=== PATIENT | female | born 1940 | race Caucasian/White ===

== ENCOUNTER → 2018-09-02 14:32 | Outpatient (REF) | payer MEDICARE, SELFPAY ==
[2018-09-02 14:41] LABS: INR 3.3 (0.9-1.3); Prothrombin Time 39.7 SECONDS (10.1-12.7)
== END ==
LOC: LAB 14:32
PROVIDERS: Family Provider Family Medicine; PCP Family Medicine; Visit Provider Family Medicine
DX: Z79.01 Long term (current) use of anticoagulants (principal)
CPT/HCPCS: 85610

== ENCOUNTER → 2019-01-16 12:36 | Outpatient (ROUT) | payer MEDICARE, SELFPAY ==
[2019-01-16 12:53] LABS: INR 2.3 (0.9-1.3); Prothrombin Time 27.4 SECONDS (10.1-12.7)
== END ==
PROVIDERS: Family Provider Family Medicine; PCP Family Medicine; Visit Provider Family Medicine
DX: Z79.01 Long term (current) use of anticoagulants (principal); I26.99 Other pulmonary embolism without acute cor pulmonale; I80.209 Phlebitis and thrombophlebitis of unspecified deep vessels of unspecified lower extremity
CPT/HCPCS: 85610

== ENCOUNTER → 2019-04-03 12:57 | Outpatient (CLI) | payer MEDICARE, SELFPAY | PROVIDERS: Family Provider Family Medicine; PCP Family Medicine; Visit Provider Family Medicine | DX: Z13.820 Encounter for screening for osteoporosis (principal); M85.852 Other specified disorders of bone density and structure, left thigh; Z78.0 Asymptomatic menopausal state; Z78.9 Other specified health status | CPT/HCPCS: 77080 ==

== ENCOUNTER → 2019-07-28 15:58 | Outpatient (ROUT) | payer MEDICARE, OTHER, SELFPAY ==
[2019-07-28 16:10] LABS: INR 3.5 (0.9-1.3); Prothrombin Time 39.6 SECONDS (10.1-12.7)
== END ==
PROVIDERS: Family Provider Family Medicine; PCP Family Medicine; Visit Provider Family Medicine
DX: Z79.01 Long term (current) use of anticoagulants (principal)
CPT/HCPCS: 85610

== ENCOUNTER → 2020-03-04 11:38 | Outpatient (ROUT) | payer MEDICARE, OTHER, SELFPAY ==
[2020-03-04 12:06] LABS: INR 4.4 (0.9-1.3); Prothrombin Time 49.4 SECONDS (10.1-12.7)
[2020-03-04 12:09] LABS: D Dimer < 200 ng/mL (<230)
== END ==
PROVIDERS: Family Provider Family Medicine; PCP Family Medicine; Visit Provider Family Medicine
DX: Z79.01 Long term (current) use of anticoagulants (principal); I26.99 Other pulmonary embolism without acute cor pulmonale; R00.0 Tachycardia, unspecified; I10 Essential (primary) hypertension; Z79.899 Other long term (current) drug therapy
CPT/HCPCS: 85379; 85610

== ENCOUNTER → 2020-03-23 10:18 | Outpatient (ROUT) | payer MEDICARE, OTHER, SELFPAY ==
[2020-03-23 10:38] LABS: INR 4.4 (0.9-1.3); Prothrombin Time 49.8 SECONDS (10.1-12.7)
== END ==
PROVIDERS: Family Provider Family Medicine; PCP Family Medicine; Visit Provider Family Medicine
DX: Z79.01 Long term (current) use of anticoagulants (principal)
CPT/HCPCS: 85610

== ENCOUNTER → 2020-03-31 16:36 | Outpatient (ROUT) | payer MEDICARE, OTHER, SELFPAY ==
[2020-03-31 17:32] LABS: INR 2.6 (0.9-1.3); Prothrombin Time 29.4 SECONDS (10.1-12.7)
== END ==
PROVIDERS: Visit Provider Family Medicine
DX: Z79.01 Long term (current) use of anticoagulants (principal)
CPT/HCPCS: 85610

== ENCOUNTER → 2020-04-13 11:49 | Outpatient (ROUT) | payer MEDICARE, OTHER, SELFPAY ==
[2020-04-13 11:54] LABS: INR 3.1 (0.9-1.3); Prothrombin Time 35.7 SECONDS (10.1-12.7)
== END ==
PROVIDERS: Family Provider Family Medicine; PCP Family Medicine; Visit Provider Family Medicine
DX: Z79.01 Long term (current) use of anticoagulants (principal)
CPT/HCPCS: 85610

== ENCOUNTER → 2020-04-29 14:29 | Outpatient (ROUT) | payer MEDICARE, OTHER, SELFPAY ==
[2020-04-29 14:36] LABS: INR 2.5 (0.9-1.3); Prothrombin Time 28.9 SECONDS (10.1-12.7)
== END ==
PROVIDERS: Family Provider Family Medicine; PCP Family Medicine; Visit Provider Family Medicine
DX: Z79.01 Long term (current) use of anticoagulants (principal)
CPT/HCPCS: 85610

== ENCOUNTER → 2020-07-22 10:46 | Outpatient (ROUT) | payer MEDICARE, OTHER, SELFPAY ==
[2020-07-22 10:53] LABS: INR 3.5 (0.9-1.3); Prothrombin Time 40.2 SECONDS (10.1-12.7)
== END ==
PROVIDERS: Visit Provider Family Medicine
DX: Z79.01 Long term (current) use of anticoagulants (principal)
CPT/HCPCS: 85610

== ENCOUNTER → 2020-08-05 13:08 | Outpatient (ROUT) | payer MEDICARE, OTHER, SELFPAY ==
[2020-08-05 13:24] LABS: Prothrombin Time 34.8 SECONDS (10.1-12.7)
== END ==
DX: Z79.01 Long term (current) use of anticoagulants (principal)
CPT/HCPCS: 85610

== ENCOUNTER → 2020-08-11 15:18 | Outpatient (ROUT) | payer MEDICARE, OTHER, SELFPAY ==
[2020-08-11 15:35] LABS: Prothrombin Time 96.8 SECONDS (10.1-12.7)
[2020-08-11 15:51] LABS: INR 8.5 (0.9-1.3)
== END ==
DX: I80.209 Phlebitis and thrombophlebitis of unspecified deep vessels of unspecified lower extremity (principal); I26.99 Other pulmonary embolism without acute cor pulmonale; Z79.01 Long term (current) use of anticoagulants
CPT/HCPCS: 85610

== ENCOUNTER → 2020-08-15 15:49 | Outpatient (ROUT) | payer MEDICARE, OTHER, SELFPAY ==
[2020-08-15 15:57] LABS: INR 1.6 (0.9-1.3); Prothrombin Time 18.5 SECONDS (10.1-12.7)
== END ==
PROVIDERS: Visit Provider Family Medicine
DX: Z79.01 Long term (current) use of anticoagulants (principal); I26.99 Other pulmonary embolism without acute cor pulmonale; I80.209 Phlebitis and thrombophlebitis of unspecified deep vessels of unspecified lower extremity
CPT/HCPCS: 85610

== ENCOUNTER → 2020-08-29 15:33 | Outpatient (ROUT) | payer MEDICARE, OTHER, SELFPAY ==
[2020-08-29 15:44] LABS: INR 3.5 (0.9-1.3); Prothrombin Time 38.5 SECONDS (10.1-12.7)
== END ==
PROVIDERS: Visit Provider Family Medicine
DX: Z79.01 Long term (current) use of anticoagulants (principal); I26.99 Other pulmonary embolism without acute cor pulmonale; I80.209 Phlebitis and thrombophlebitis of unspecified deep vessels of unspecified lower extremity
CPT/HCPCS: 85610

== ENCOUNTER → 2020-10-10 16:48 | Outpatient (ROUT) | payer MEDICARE, OTHER, SELFPAY ==
[2020-10-10 17:15] LABS: INR 1.6 (0.9-1.3); Prothrombin Time 17.9 SECONDS (10.1-12.7)
== END ==
PROVIDERS: Visit Provider Family Medicine
DX: Z79.01 Long term (current) use of anticoagulants (principal); I26.99 Other pulmonary embolism without acute cor pulmonale; I80.209 Phlebitis and thrombophlebitis of unspecified deep vessels of unspecified lower extremity
CPT/HCPCS: 85610

== ENCOUNTER → 2020-12-01 15:30 | Outpatient (ROUT) | payer MEDICARE, OTHER, SELFPAY ==
[2020-12-01 15:39] LABS: INR 2.4 (0.9-1.3); Prothrombin Time 27.1 SECONDS (10.1-12.7)
== END ==
PROVIDERS: Visit Provider Family Medicine
DX: I26.99 Other pulmonary embolism without acute cor pulmonale (principal); I80.209 Phlebitis and thrombophlebitis of unspecified deep vessels of unspecified lower extremity; Z79.01 Long term (current) use of anticoagulants
CPT/HCPCS: 85610

== ENCOUNTER → 2021-01-27 15:01 | Outpatient (ROUT) | payer MEDICARE, OTHER, SELFPAY ==
[2021-01-27 15:16] LABS: INR 3.2 (0.9-1.3); Prothrombin Time 37.3 SECONDS (10.1-12.7)
== END ==
PROVIDERS: Visit Provider Family Medicine
DX: I80.209 Phlebitis and thrombophlebitis of unspecified deep vessels of unspecified lower extremity (principal); Z79.01 Long term (current) use of anticoagulants
CPT/HCPCS: 85610

== ENCOUNTER → 2021-03-07 15:50 | Outpatient (ROUT) | payer MEDICARE, OTHER, SELFPAY ==
[2021-03-07 16:05] LABS: INR 2.2 (0.9-1.3); Prothrombin Time 25.4 SECONDS (10.1-12.7)
== END ==
PROVIDERS: Visit Provider Family Medicine
DX: Z79.01 Long term (current) use of anticoagulants (principal)
CPT/HCPCS: 85610

== ENCOUNTER → 2021-04-03 14:24 | Outpatient (ROUT) | payer MEDICARE, OTHER, SELFPAY ==
[2021-04-03 14:33] LABS: INR 3.2 (0.9-1.3); Prothrombin Time 37.3 SECONDS (10.1-12.7)
== END ==
PROVIDERS: Visit Provider Family Medicine
DX: Z79.01 Long term (current) use of anticoagulants (principal)
CPT/HCPCS: 85610

== ENCOUNTER → 2021-07-03 15:49 | Outpatient (ROUT) | payer MEDICARE, OTHER, SELFPAY ==
[2021-07-03 16:29] LABS: INR 3.7 (0.9-1.3); Prothrombin Time 42.9 SECONDS (10.1-12.7)
[2021-12-15 14:19] LABS: INR 3.3 (0.9-1.3); Prothrombin Time 38.5 SECONDS (10.1-12.7)
== END ==
PROVIDERS: Visit Provider Family Medicine
DX: Z79.01 Long term (current) use of anticoagulants (principal)
CPT/HCPCS: 85610

== ENCOUNTER → 2021-11-28 14:31 | Outpatient (ROUT) | payer MEDICARE, OTHER, SELFPAY ==
[2021-11-28 14:43] LABS: Prothrombin Time 34.4 SECONDS (10.1-12.7)
== END ==
PROVIDERS: Visit Provider Family Medicine
DX: I26.99 Other pulmonary embolism without acute cor pulmonale (principal); I80.209 Phlebitis and thrombophlebitis of unspecified deep vessels of unspecified lower extremity; Z79.01 Long term (current) use of anticoagulants
CPT/HCPCS: 85610

== ENCOUNTER → 2021-12-15 14:02 | Outpatient (ROUT) | payer MEDICARE, OTHER, SELFPAY | PROVIDERS: Visit Provider Family Medicine | DX: I80.209 Phlebitis and thrombophlebitis of unspecified deep vessels of unspecified lower extremity (principal); Z79.01 Long term (current) use of anticoagulants | CPT/HCPCS: 85610 ==

== ENCOUNTER → 2022-03-16 11:47 | Outpatient (ROUT) | payer MEDICARE, OTHER, SELFPAY ==
[2022-03-16 12:09] LABS: INR 1.8 (0.9-1.3); Prothrombin Time 20.4 SECONDS (10.1-12.7)
== END ==
PROVIDERS: Visit Provider Family Medicine
DX: I26.99 Other pulmonary embolism without acute cor pulmonale (principal); Z79.01 Long term (current) use of anticoagulants; I80.209 Phlebitis and thrombophlebitis of unspecified deep vessels of unspecified lower extremity
CPT/HCPCS: 85610

== ENCOUNTER → 2022-07-05 14:04 | Outpatient (ROUT) | payer MEDICARE, OTHER, SELFPAY ==
[2022-07-05 14:21] LABS: INR 1.7 (0.9-1.3); Prothrombin Time 19.5 SECONDS (10.1-12.7)
== END ==
PROVIDERS: Visit Provider Family Medicine
DX: Z79.01 Long term (current) use of anticoagulants (principal); I80.209 Phlebitis and thrombophlebitis of unspecified deep vessels of unspecified lower extremity
CPT/HCPCS: 85610

== ENCOUNTER → 2022-08-16 10:18 | Outpatient (ROUT) | payer MEDICARE, OTHER, SELFPAY ==
[2022-08-16 10:26] LABS: INR 1.8 (0.9-1.3); Prothrombin Time 20.4 SECONDS (10.1-12.7)
== END ==
PROVIDERS: Visit Provider Family Medicine
DX: I80.209 Phlebitis and thrombophlebitis of unspecified deep vessels of unspecified lower extremity (principal)
CPT/HCPCS: 85610

== ENCOUNTER → 2022-08-24 12:17 | Outpatient (ROUT) | payer MEDICARE, OTHER, SELFPAY ==
[2022-08-24 12:36] LABS: INR 3.2 (0.9-1.3); Prothrombin Time 36.8 SECONDS (10.1-12.7)
== END ==
PROVIDERS: Visit Provider Family Medicine
DX: Z79.01 Long term (current) use of anticoagulants (principal)
CPT/HCPCS: 85610

== ENCOUNTER → 2022-10-03 13:31 | Outpatient (ROUT) | payer MEDICARE, OTHER, SELFPAY ==
[2022-10-03 14:16] LABS: INR 3.7 (0.9-1.3); Prothrombin Time 42.8 SECONDS (10.1-12.7)
== END ==
PROVIDERS: Visit Provider Family Medicine
DX: Z79.01 Long term (current) use of anticoagulants (principal)
CPT/HCPCS: 85610

== ENCOUNTER → 2022-11-16 13:54 | Outpatient (ROUT) | payer MEDICARE, OTHER, SELFPAY ==
[2022-11-16 14:13] LABS: INR 3.7 (0.9-1.3); Prothrombin Time 42.5 SECONDS (10.1-12.7)
== END ==
PROVIDERS: Visit Provider Family Medicine
DX: Z79.01 Long term (current) use of anticoagulants (principal)
CPT/HCPCS: 85610

== ENCOUNTER → 2022-11-23 18:53 | Outpatient (ROUT) | payer MEDICARE, OTHER, SELFPAY | PROVIDERS: Visit Provider Family Medicine | DX: N39.0 Urinary tract infection, site not specified (principal) | CPT/HCPCS: 87077; 87086; 87186 ==

== ENCOUNTER → 2022-11-29 11:20 | Outpatient (CLI) | payer MEDICARE, OTHER, SELFPAY ==
--- NOTE | 2022-11-29 | DI.RAD.S_ITS ---
PROCEDURE: FL BARIUM SWALLOW INDICATIONS: Dysphagia, unspecified COMPARISON: None. FINDINGS: Function: Tertiary non propulsive contractions are noted, which are relatively low amplitude without signs of spasm. Incomplete clearance of the esophagus with seen on prone and supine images, and gastroesophageal reflux was not assessed. There is normal transit of a calibrated barium tablet through the esophagus into the stomach. Morphology: Air-contrast images demonstrate normal mucosal morphology. Single contrast views show no esophageal strictures, extrinsic mass effects, or diverticula. Small reducible hiatal hernia. Limited images of the stomach demonstrate normal appearance. IMPRESSION: 1. Small reducible hiatal hernia. 2. Mild tertiary contractions. 3. Incomplete clearance of the esophagus on non-upright sequences. Approved by: Cas Luu M.D. on 11/29/2022 at 13:17
== END ==
PROVIDERS: PCP Family Medicine; Referring Provider Family Medicine; Visit Provider Family Medicine
DX: R13.10 Dysphagia, unspecified (principal)
CPT/HCPCS: 74220

== ENCOUNTER → 2022-12-20 14:45 | Outpatient (ROUT) | payer MEDICARE, OTHER, SELFPAY ==
[2022-12-20 15:07] LABS: INR 2.9 (0.9-1.3); Prothrombin Time 33.1 SECONDS (10.1-12.7)
== END ==
PROVIDERS: PCP Family Medicine
DX: R07.9 Chest pain, unspecified (principal); E78.5 Hyperlipidemia, unspecified; I25.118 Atherosclerotic heart disease of native coronary artery with other forms of angina pectoris
CPT/HCPCS: 85610

== ENCOUNTER → 2022-12-21 15:53 | Outpatient (ROUT) | payer MEDICARE, OTHER, SELFPAY ==
[2022-12-21 16:10] LABS: Prothrombin Time 23.5 SECONDS (10.1-12.7)
== END ==
PROVIDERS: PCP Family Medicine; Visit Provider Registered Nurse
DX: Z51.81 Encounter for therapeutic drug level monitoring (principal); Z79.01 Long term (current) use of anticoagulants
CPT/HCPCS: 85610

== ENCOUNTER → 2023-05-01 15:20 | Outpatient (ROUT) | payer MEDICARE, OTHER, SELFPAY ==
[2023-05-01 16:04] LABS: Prothrombin Time 58.7 SECONDS (10.1-12.7)
== END ==
PROVIDERS: PCP Family Medicine; Visit Provider Family Medicine
DX: I82.409 Acute embolism and thrombosis of unspecified deep veins of unspecified lower extremity (principal); I26.99 Other pulmonary embolism without acute cor pulmonale
CPT/HCPCS: 85610

== ENCOUNTER → 2023-07-26 15:51 | Outpatient (ROUT) | payer MEDICARE, OTHER, SELFPAY ==
[2023-07-26 16:00] LABS: Prothrombin Time 80.5 SECONDS (9.4-12.5)
[2023-07-26 16:11] LABS: INR 6.9 (0.9-1.3)
== END ==
PROVIDERS: PCP Family Medicine; Visit Provider Family Medicine
DX: I82.409 Acute embolism and thrombosis of unspecified deep veins of unspecified lower extremity (principal); I26.99 Other pulmonary embolism without acute cor pulmonale
CPT/HCPCS: 85610

== ENCOUNTER → 2023-07-29 15:52 | Outpatient (ROUT) | payer MEDICARE, OTHER, SELFPAY ==
[2023-07-29 16:26] LABS: Prothrombin Time 46.2 SECONDS (9.4-12.5)
== END ==
PROVIDERS: PCP Family Medicine; Visit Provider Family Medicine
DX: I82.409 Acute embolism and thrombosis of unspecified deep veins of unspecified lower extremity (principal); I26.99 Other pulmonary embolism without acute cor pulmonale
CPT/HCPCS: 85610

== ENCOUNTER → 2023-08-02 11:50 | Outpatient (ROUT) | payer MEDICARE, OTHER, SELFPAY ==
[2023-08-02 12:08] LABS: INR 1.4 (0.9-1.3); Prothrombin Time 15.7 SECONDS (9.4-12.5)
== END ==
PROVIDERS: PCP Family Medicine; Visit Provider Family Medicine
DX: I82.409 Acute embolism and thrombosis of unspecified deep veins of unspecified lower extremity (principal); I26.99 Other pulmonary embolism without acute cor pulmonale
CPT/HCPCS: 85610

== ENCOUNTER → 2023-08-19 15:37 | Outpatient (ROUT) | payer MEDICARE, OTHER, SELFPAY ==
[2023-08-19 16:24] LABS: Prothrombin Time 70.2 SECONDS (9.4-12.5)
== END ==
PROVIDERS: PCP Family Medicine; Visit Provider Family Medicine
DX: I82.409 Acute embolism and thrombosis of unspecified deep veins of unspecified lower extremity (principal); I26.99 Other pulmonary embolism without acute cor pulmonale
CPT/HCPCS: 85610

== ENCOUNTER → 2023-11-14 16:07 | Outpatient (ROUT) | payer MEDICARE, OTHER, SELFPAY ==
[2023-11-14 16:40] LABS: Prothrombin Time 66.3 SECONDS (9.4-12.5)
[2023-11-14 16:45] LABS: INR 5.7 (0.9-1.3)
== END ==
PROVIDERS: PCP Family Medicine; Visit Provider Family Medicine
DX: I26.99 Other pulmonary embolism without acute cor pulmonale (principal); I82.409 Acute embolism and thrombosis of unspecified deep veins of unspecified lower extremity
CPT/HCPCS: 85610

== ENCOUNTER → 2023-11-26 13:56 | Outpatient (ROUT) | payer MEDICARE, OTHER, SELFPAY ==
[2023-11-26 14:08] LABS: INR 1.9 (0.9-1.3); Prothrombin Time 21.7 SECONDS (9.4-12.5)
== END ==
PROVIDERS: PCP Family Medicine; Visit Provider Family Medicine
DX: I82.409 Acute embolism and thrombosis of unspecified deep veins of unspecified lower extremity (principal); I26.99 Other pulmonary embolism without acute cor pulmonale
CPT/HCPCS: 85610

== ENCOUNTER → 2023-12-11 16:16 | Outpatient (ROUT) | payer MEDICARE, OTHER, SELFPAY ==
[2023-12-11 16:45] LABS: INR 4.3 (0.9-1.3); Prothrombin Time 49.8 SECONDS (9.4-12.5)
== END ==
PROVIDERS: PCP Family Medicine; Visit Provider Family Medicine
DX: I26.99 Other pulmonary embolism without acute cor pulmonale (principal); I82.409 Acute embolism and thrombosis of unspecified deep veins of unspecified lower extremity
CPT/HCPCS: 85610

== ENCOUNTER → 2024-03-18 15:04 | Outpatient (ROUT) | payer MEDICARE, OTHER, SELFPAY ==
[2024-03-18 15:39] LABS: Prothrombin Time 87.4 SECONDS (9.4-12.5)
[2024-03-18 15:52] LABS: INR 7.5 (0.9-1.3)
== END ==
PROVIDERS: PCP Family Medicine; Visit Provider Family Medicine
DX: I82.409 Acute embolism and thrombosis of unspecified deep veins of unspecified lower extremity (principal); I26.99 Other pulmonary embolism without acute cor pulmonale
CPT/HCPCS: 85610

== ENCOUNTER → 2024-04-22 11:35 | Outpatient (CLI) | payer MEDICARE, OTHER, SELFPAY | PROVIDERS: PCP Family Medicine; Visit Provider Urology | DX: N32.81 Overactive bladder (principal); N39.0 Urinary tract infection, site not specified; N39.3 Stress incontinence (female) (male); R30.0 Dysuria; R39.12 Poor urinary stream; R39.14 Feeling of incomplete bladder emptying; R39.9 Unspecified symptoms and signs involving the genitourinary system | CPT/HCPCS: 51798; 81002; 87077; 87086; 87186; 99214 ==

== ENCOUNTER → 2024-05-07 13:10 | Outpatient (CLI) | payer MEDICARE, OTHER, SELFPAY | PROVIDERS: PCP Family Medicine; Visit Provider Urology | DX: N39.0 Urinary tract infection, site not specified (principal); N39.3 Stress incontinence (female) (male); N32.81 Overactive bladder | CPT/HCPCS: 51741; 51798; 52000; 81002; 87086; 99214 ==

== ENCOUNTER → 2024-05-26 11:52 | Outpatient (ROUT) | payer MEDICARE, OTHER, SELFPAY ==
[2024-05-26 12:02] LABS: INR 1.5 (0.9-1.3); Prothrombin Time 16.5 SECONDS (9.4-12.5)
== END ==
PROVIDERS: PCP Family Medicine; Visit Provider Family Medicine
DX: I82.409 Acute embolism and thrombosis of unspecified deep veins of unspecified lower extremity (principal); I26.99 Other pulmonary embolism without acute cor pulmonale
CPT/HCPCS: 85610

== ENCOUNTER 2024-08-01 17:45 | Emergency (ER) | payer MEDICARE, OTHER, SELFPAY ==
--- NOTE | 2024-08-01 17:52 | DI.RAD.S_ITS ---
PROCEDURE: XR CHEST 1V INDICATIONS: Shortness of breath TECHNIQUE: One view of the chest was acquired. COMPARISON: [facility], CR, XR CHEST 2 VIEWS, 08/25/2020, 12:02. FINDINGS: Surgical changes and devices: None. Lungs and pleura: Lungs are clear. No pleural effusions or pneumothorax. Mediastinum: Mediastinal contours appear normal. Heart size is normal. Bones and chest wall: No suspicious bony lesions. Age-appropriate bony degenerative changes are seen. Mild dextroconvex scoliotic curvature is seen. A stable bone island can be seen involving the right humeral head. Overlying soft tissues appear unremarkable. IMPRESSION: Portable chest within normal limits for age. Dictated by: John Benitez M.D. on 08/01/2024 at 17:24 Approved by: John Benitez M.D. on 08/01/2024 at 17:25
--- NOTE | 2024-08-01 17:52 | EKG_ITS ---
[facility] [address] [place] [address] Test Date: 2024-08-01 Pat Name: Fay Carbajal Department: [facility] Room: Gender: Female Manager Packaging: DARIO : 1940 Requested By: Order Number: [id number] Reading MD: Bhavik Jackman MD Measurements Intervals Arbon Rate: 112 P: 30 LA: 152 QRS: -89 QRSD: 118 T: 35 QT: 344 QTc: 469 Interpretive Statements Sinus tachycardia Right bundle branch block Left anterior fascicular block Bifascicular block NO SIGNIFICANT CHANGE FROM PRIOR TRACING Electronically Signed On 08-02-2024 8:48:35 PST by Bhavik Jackman MD
[2024-08-01 17:58] VITALS: BP 149/87; PULSE 112; RESP 18; TEMP 37.1; O2SAT 93; BMI 36.1
--- NOTE | 2024-08-01 18:08 | ED.SOB ---
HPI - SOB/Dyspnea General Chief Complaint: Shortness of Breath/Dyspnea Stated Complaint: SOB, fever Time Seen by Provider: 08/01/24 18:05 Source: patient, RN notes reviewed and old records reviewed Mode of arrival: Wheelchair Limitations: no limitations History of Present Illness HPI Narrative: 84-year-old female history of atrial fibrillation on Eliquis, hypertension, dyslipidemia, CKD stage 3 presents with complaint of nasal congestion and cough generally feeling unwell shortness of breath over the last several days some chest discomfort, some nausea but with no vomiting. Patient states she was told she had a fever at the walk-in clinic is afebrile here and has not appreciate any fevers at home. She was had has a mild nasal congestion and cough. Notes little bit of chest discomfort sort of comes and goes does not seem to be exacerbated by anything in particular she was also had some increased shortness of breath. States she was able to ambulate to the bathroom and around the house but notices a change. She does not noticed a little bit of increased swelling in her lower extremities. She has had nausea but no vomiting. She just describes little bit of diarrhea intermittent with constipation. No abdominal back or flank pain. Describes myalgias. Does note she was chronic swelling in her lower extremities but it is little bit worse lately. Reports she was on Eliquis for atrial fibrillation, metoprolol, atorvastatin and several other medications does not appear she takes Lasix. Has had a prior cholecystectomy but no other prior cardiac interventions or surgeries reported. No known drug allergies. No tobacco, occasional alcohol, no recreational drugs. Dr. Escobar is her primary care physician. She was she was Dr. Melendrez for cardiology. 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 She was accompanied by family. Related Data Home Medications Medication Instructions Recorded Confirmed albuterol sulfate 90 mcg/actuation 1 puff INH PRN ##0 11/08/12 05/07/24 aerosol inhaler (Ventolin HFA) CA PANTOTHENATE/FOLIC ACID/VIT 1 tab PO QDAY ##0 01/19/13 05/07/24 (MULTIVITAMIN) Diphenhydramine Hydrochloride 25 mg OR HS ##0 01/22/13 05/07/24 (BENADRYL) apixaban 5 mg tablet (Eliquis) 5 mg PO BID 04/22/24 05/07/24 metoprolol succinate 50 mg 50 mg PO DAILY 04/22/24 05/07/24 tablet,extended release 24 hr montelukast 10 mg tablet 10 mg PO DAILY 04/22/24 05/07/24 oxybutynin chloride 5 mg tablet 5 mg PO DAILY 04/22/24 05/07/24 phenazopyridine 95 mg tablet (Azo 95 mg PO TID PRN 04/22/24 05/07/24 Urinary Pain Relief) atorvastatin 20 mg tablet mg PO DAILY 08/01/24 08/01/24 bupropion HCl 200 mg tablet,12 hr mg PO 08/01/24 08/01/24 sustained-release estradiol 0.01% (0.1 mg/gram) 0.5 g vaginal 2XW 08/01/24 08/01/24 vaginal cream furosemide 20 mg tablet mg PO 08/01/24 08/01/24 isosorbide mononitrate 30 mg mg PO DAILY 08/01/24 08/01/24 tablet,extended release 24 hr Previous Rx's Medication Instructions Recorded mirabegron 50 mg tablet,extended 50 mg PO DAILY #30 tabs 05/07/24 release 24 hr Allergies Allergy/AdvReac Type Severity Reaction Status Date / Time SULFA TOPICAL CREAM Allergy Unknown Uncoded 05/07/24 13:12 Review of Systems Review of Systems ROS Unobtainable: All systems reviewed & are unremarkable except as noted in HPI and below Patient History Social History Smoking Status: Never smoker Smoking Status: Never smoker Exam Narrative Exam Narrative: GEN: well nourished, well appearing female, alert and oriented x 3, patient appears to be in mild distress. HEENT: Atraumatic, pupils are equal round reactive to light, extraocular movements are intact, nares are clear, there is no conjunctival pallor. Throat is clear without any exudates, erythema, tonsillar enlargement or uvular deviation HEART: Heart rate slightly tachycardic but Regular rate and rhythm without murmur, clicks, rubs. Edema bilateral lower extremities. LUNGS:Lungs clear to auscultation, no wheezes, rales, mild crackles bilaterally, chest moves symmetrically, no tachypnea or accessory muscle use. ABD:bowel sounds normal, soft, non-tender, no guarding, rebound, rigidity, no masses noted, no hepatosplenomegaly :No CVA tenderness MSCL: Non-tender, no muscle atrophy, muscles strength 5/5 upper and lower extremities, full range of motion. NEURO:CN 2-12 intact, sensation normal Initial Vital Signs Initial Vital Signs: Vital Signs Temperature 98.7 F 08/01/24 17:58 Pulse Rate 112 H 08/01/24 17:58 Respiratory Rate 18 08/01/24 17:58 Blood Pressure 149/87 H 08/01/24 17:58 Pulse Oximetry 93 08/01/24 17:58 Oxygen Delivery Method Room Air 08/01/24 17:58 Course Orders Ordered: Discontinued Medications Furosemide (Furosemide 40 Mg/4 Ml Vial) 40 mg IV NOW ONE Stop: 08/01/24 19:04 Last Admin: 08/01/24 19:17 Dose: 40 mg Documented By: MARY Vital Signs Vital signs: Vital Signs - 8 hr 08/01/24 17:58 Temperature 98.7 F Pulse Rate 112 H Respiratory Rate 18 Blood Pressure 149/87 H Pulse Oximetry 93 Oxygen Delivery Method Room Air MDM - SOB/Dyspnea Lab Data 08/01/24 18:25 08/01/24 18:25 Labs: Lab Results 08/01/24 08/01/24 Range/Units 18:00 18:25 WBC 14.3 H (4.5-11.0) X10^3/uL RBC 3.97 L (4.0-5.2) X10^6/uL Hgb 12.2 (12.0-16.0) g/dL Hct 37.3 (36-46) % MCV 94.0 (80-100) fL MCH 30.8 (26-34) PG MCHC 32.8 (30-36) % RDW 13.0 (11.6-14.8) % Plt Count 245 (150-400) X10^3/uL Neut % (Auto) 71.5 (50-75) % Lymph % (Auto) 16.1 L (25-40) % [place] % (Auto) 11.4 (3-14) % Eos % (Auto) 0.5 L (2-4) % Baso % (Auto) 0.5 (0-2) % Neut # (Auto) 71243 H (8579-2769) /uL Lymph # (Auto) 2300 (5510-0936) /uL [place] # (Auto) 1600 H (0-900) /uL Eos # (Auto) 100 (0-450) /uL Baso # (Auto) 100 (0-100) /uL PT 21.8 H (9.4-12.5) SECONDS INR 2.0 H (0.9-1.3) Sodium 134 L (137-145) mmol/L Potassium 4.3 (3.4-5.1) mmol/L Chloride 101 (98-107) mmol/L Carbon Dioxide 22 (22-32) mmol/L BUN 31 H (7-17) mg/dL Creatinine 1.43 H (0.52-1.04) mg/dL Estimated GFR 36 L (>60) mL/min BUN/Creatinine Ratio 21.7 (6-22) Glucose 125 H (80-110) mg/dL Lactate 1.0 (0.7-2.1) mmol/L Calcium 9.2 (8.4-10.2) mg/dL Total Bilirubin 0.5 (0.2-1.3) mg/dL AST 22 (14-36) IU/L ALT 20 (<35) IU/L Alkaline Phosphatase 93 (38-126) U/L Troponin I < 0.012 (0.01-0.034) ng/mL NT-Pro-B Natriuret Pep 1490 H (<450) pg/mL Total Protein 7.4 (6.3-8.2) g/dL Albumin 4.2 (3.5-5.0) g/dL Globulin 3.2 (1.7-4.1) g/dL Albumin/Globulin Ratio 1.3 (1.0-2.8) SARS-CoV-2 (PCR) Negative (Negative) Influenza A (RT-PCR) Flu a negative (NEGATIVE) Influenza B (RT-PCR) Flu b negative (NEGATIVE) RSV (PCR) Negative (Negative) Imaging Data Chest x-ray: Radiologist's Impression: Close Chest X-Ray (Signed) John Benitez - 08/01/24 Barium Swallow X-Ray (Signed) Cas Luu - 11/29/22 Bone Densitometry 04/03/[address] [address] XRay Report Signed Patient: Fay Carbajal MR#: [id number] : 1940 Acct:[id number] Age/Sex: 84 / F Date of Service: 08/01/24 Loc: ED Accession Number: [id number] Procedure: XR chest 1V Ordering Provider: Aletha Caba D.O. PROCEDURE: XR CHEST 1V INDICATIONS: Shortness of breath TECHNIQUE: One view of the chest was acquired. COMPARISON: [facility], , XR CHEST 2 VIEWS, 08/25/2020, 12:02. FINDINGS: Surgical changes and devices: None. Lungs and pleura: Lungs are clear. No pleural effusions or pneumothorax. Mediastinum: Mediastinal contours appear normal. Heart size is normal. Bones and chest wall: No suspicious bony lesions. Age-appropriate bony degenerative changes are seen. Mild dextroconvex scoliotic curvature is seen. A stable bone island can be seen involving the right humeral head. Overlying soft tissues appear unremarkable. IMPRESSION: Portable chest within normal limits for age. Dictated by: John Benitez M.D. on 08/01/2024 at 17:24 Approved by: John Benitez M.D. on 08/01/2024 at 17:25 ECG Data Attestation: I personally reviewed and interpreted this ECG as follows: Prior ECG tracings: available for review Interpretation: Sinus tachycardia, right bundle-branch block left anterior fascicular block rate of 112, OR 152 QRS of 118 QTC of 469, no acute ST changes. Patient was prior from 12/27/2014 appears similar no acute ST changes. MDM Narrative Medical decision making narrative: 84-year-old female history of AFib, hypertension, dyslipidemia, CHF on Lasix. EKG shows no acute changes, sinus tach Chest x-ray shows no acute change Labs white count of 14.3 hemoglobin of 12 platelets of 245. INR is 2. Labs show sodium of 134 otherwise appropriate electrolytes BUN 31 creatinine is 1.43 patient notes she has CKD stage 3 no priors for comparison glucose is 125 lactate is 1 troponins less than 0.012 with a BNP of 1490 COVID/influenza/RSV is negative Patient given Lasix 40 mg IV Vitals signs are noted. Patient is still slightly tachycardic, she is not not tachypneic in the 30s and has respirations 15-18 just prior to discharge with no work of breathing. Patient has mild crackles on exam, she was noted increased swelling in her extremities she was felt generally unwell may have little bit of upper respiratory infection as well from her description by suspect she has a little bit of laceration of heart failure. Would increase her Lasix. She has been taking 20 mg every other day, we will change this to 20 mg daily next 3 days and re-evaluate with her physician. Patient states she has plenty at home. Discharge Plan Departure Patient Disposition: Home Clinical Impression: CHF (congestive heart failure) Instructions: DI for Heart Failure Activity Restrictions/Additional Instructions: Please follow up with your physician for recheck this week. I suspect you have little bit of exacerbation of congestive heart failure. Please increase your furosemide or Lasix to 1 tablets daily for the next 3 days instead of your usual every other day. Talk with your physician they may have you continue with this or return to your normal dose. Please return for new or worsening symptoms, new chest pain, increasing shortness of breath, lightheadedness or passing out, worsening swelling of your extremities or other new or concerning changes. Prescriptions: No Action isosorbide mononitrate 30 mg tablet extended release 24 hr PO DAILY atorvastatin 20 mg tablet PO DAILY furosemide 20 mg tablet PO Patient Comments: [NO ORIGINAL SIG] bupropion HCl 200 mg tablet sustained-release 12 hr PO estradiol 0.01 % (0.1 mg/gram) cream 0.5 g vaginal 2XW albuterol sulfate [Ventolin HFA] 90 MCG/PUFF HFA aerosol inhaler 1 puff INH PRN Qty: 0 CA PANTOTHENATE/FOLIC ACID/VIT (MULTIVITAMIN) 1 tab PO QDAY Qty: 0 Diphenhydramine Hydrochloride (BENADRYL) 25 mg OR HS Qty: 0 phenazopyridine [Azo Urinary Pain Relief] 95 mg tablet 95 mg PO TID PRN oxybutynin chloride 5 mg tablet 5 mg PO DAILY metoprolol succinate 50 mg tablet extended release 24 hr 50 mg PO DAILY montelukast 10 mg tablet 10 mg PO DAILY Eliquis 5 mg tablet 5 mg PO BID mirabegron 50 mg tablet extended release 24 hr 50 mg PO DAILY Qty: 30 0RF Referrals: Júnior Escobar MD [Primary Care Provider] - Stand Alone Forms: Patient Portal/API/Survey
[2024-08-01 18:30] VITALS: PULSE 109; RESP 20; O2SAT 91
[2024-08-01 18:34] LABS: Add Manual Diff / Slide Review NO; Basophils Absolute Auto 100 /uL (0-100); Basophils Percent Auto 0.5 % (0-2); Eosinophils Absolute Auto 100 /uL (0-450); Eosinophils Percent Auto 0.5 % (2-4); Hematocrit 37.3 % (36-46); Hemoglobin 12.2 g/dL (12.0-16.0); Lymphocytes Absolute Auto 2300 /uL (1100-4500); Lymphocytes Percent Auto 16.1 % (25-40); Mean Corpuscular HGB Conc 32.8 % (30-36); Mean Corpuscular Hemoglobin 30.8 PG (26-34); Monocytes Absolute Auto 1600 /uL (0-900); Monocytes Percent Auto 11.4 % (3-14); Neutrophils Absolute Auto 10200 /uL (1500-7000); Neutrophils Percent Auto 71.5 % (50-75); Platelet Count 245 X10^3/uL (150-400); Red Blood Cell Count 3.97 X10^6/uL (4.0-5.2); White Blood Cell Count 14.3 X10^3/uL (4.5-11.0)
[2024-08-01 18:41] LABS: Prothrombin Time 21.8 SECONDS (9.4-12.5)
[2024-08-01 18:45] LABS: Alanine Aminotransferase 20 IU/L (<35); Albumin 4.2 g/dL (3.5-5.0); Albumin Globulin Ratio 1.3 (1.0-2.8); Alkaline Phosphatase 93 U/L (38-126); Aspartate Aminotransferase 22 IU/L (14-36); BUN Creatinine Ratio 21.7 (6-22); Bilirubin Total 0.5 mg/dL (0.2-1.3); Blood Urea Nitrogen 31 mg/dL (7-17); Calcium 9.2 mg/dL (8.4-10.2); Carbon Dioxide 22 mmol/L (22-32); Chloride 101 mmol/L (98-107); Estimated Glomerular Filt Rate 36 mL/min (>60); Globulin 3.2 g/dL (1.7-4.1); Glucose 125 mg/dL (80-110); HEMOLYSIS < 15 (0-50); Potassium 4.3 mmol/L (3.4-5.1); Sodium 134 mmol/L (137-145); Total Protein 7.4 g/dL (6.3-8.2)
[2024-08-01 18:48] LABS: Influenza A - CEPHEID Flu A NEGATIVE (NEGATIVE); Influenza B - CEPHEID Flu B NEGATIVE (NEGATIVE); Respiratory Syncytial Virus Negative (Negative)
[2024-08-01 18:51] LABS: COVID-19 CEPHEID 4-PLEX PCR Negative (Negative)
[2024-08-01 18:57] LABS: NT-proBNP (BNP-Adult 18+) 1490 pg/mL (<450); Troponin I < 0.012 ng/mL (0.01-0.034)
[2024-08-01 19:10] VITALS: BP 144/67; PULSE 112; RESP 36; O2SAT 94
[2024-08-01] MEDS: FUROSEMIDE 40 MG/4 ML VIAL IV (19:17)
== END 2024-08-01 19:52 | disposition home or self-care (01) ==
PROVIDERS: Emergency Medicine; Emergency Provider Emergency Medicine; PCP Family Medicine
DX: I50.9 Heart failure, unspecified (principal); R00.0 Tachycardia, unspecified; R07.9 Chest pain, unspecified; I45.2 Bifascicular block; R11.0 Nausea; I48.91 Unspecified atrial fibrillation; Z79.01 Long term (current) use of anticoagulants; I10 Essential (primary) hypertension; E78.5 Hyperlipidemia, unspecified
CPT/HCPCS: 0241U; 71045; 80053; 83605; 83880; 84484; 85025; 85610; 93005; 93010; 96374; 99284; J1940

== ENCOUNTER → 2024-10-01 13:33 | Outpatient (CLI) | payer MEDICARE, OTHER, SELFPAY ==
--- NOTE | 2024-10-01 13:35 | DI.ECHO.S_ITS ---
[facility] : : [address] : : [place] : : [id number] : : Phone: [phone] Echocardiogram Report + + :Name: ANGELITA COY Study Date: 10/01/2024 Height: 65 in : :[facility] ReadingLocation: Weight: 205 lb : : Gender: Female BSA: 2.0 m2 : :: 1940 Age: 84 yrs BP: 138/86 mmHg: :Reason For Study: SYNCOPE : :Ordering Physician: CHRISTEN, : :PUJA Performed By: Hussein Sandhu : :Referring: PUJA VELÁSQUEZ : + + Interpretation Summary The left ventricle is normal in size. The left ventricular ejection fraction is normal. The ejection fraction is estimated to be 60-65%. Previous LV ejection fraction 60 to 65% as well. The right ventricle is normal in size and function. There is mild mitral regurgitation. There is mild tricuspid regurgitation. The right ventricular systolic pressure is estimated to be at least 35 mmHg based on an estimated right atrial pressure of 3 mm Hg. There is mild luminal irregularity and echogenicity in the abdominal aorta, suggestive of aortic atherosclerotic disease. Abdominal atherosclerosis seen on previous study as well. In this study, no significant aortic arch atherosclerotic plaque seen. Procedure: A two-dimensional transthoracic echocardiogram with color flow and Doppler was performed. The study quality was technically good. Comparison is made with the echocardiogram of 08/12/2020. The patient was in normal sinus rhythm during the exam. Left Ventricle: The left ventricle is normal in size. Left ventricular wall thickness is mildly increased. There is no ventricular septal defect visualized. The ejection fraction is estimated to be 60-65%. The left ventricular ejection fraction is normal. There are no focal wall motion abnormalities. MV E/A: 1.2 Med Peak E' Timoteo: 7.2 cm/sec E/E' med: 14.2. Right Ventricle: The right ventricle is normal in size and function. Atria: The left atrial size is normal. There has been no significant change since the previous study. Right atrial size is normal. There is no Doppler evidence for an interatrial shunt. Mitral Valve: The mitral valve leaflets appear mildly thickened, but open well. The mitral valve leaflets are moderately calcified. There is mild to moderate mitral annular calcification. The mitral valve chordae are thickened and/or calcified. There is mild mitral regurgitation. Aortic Valve: The aortic valve is trileaflet. The aortic valve opens well. The aortic valve is mildly calcified. There is no aortic valve stenosis. No aortic regurgitation is present. Tricuspid Valve: The tricuspid valve leaflets are thin and pliable. There is mild tricuspid regurgitation. The right ventricular systolic pressure is estimated to be at least 35 mmHg based on an estimated right atrial pressure of 3 mm Hg. Pulmonic Valve: The pulmonic valve is not well visualized. There is no pulmonic valvular regurgitation. Great Vessels: The aortic root is normal size. The dimensions of the ascending aorta are normal. There is mild luminal irregularity and echogenicity in the abdominal aorta, suggestive of aortic atherosclerotic disease. The pulmonary artery is not well visualized, but is probably normal size. The IVC is of normal diameter and collapses greater than 50% with a sniff. This suggests a low right atrial pressure of 3 mm Hg. Pericardium/ Pleura There is no pericardial effusion. There is no pleural effusion. MMode/2D Measurements & Calculations LVIDd: 4.3 cm LVOT diam: 2.0 cm LVIDs: 3.1 cm Ao root diam: 3.3 cm FS: 27.9 % asc Aorta Diam: 3.2 cm EPSS: 0.58 cm IVSd: 1.1 cm LVPWd: 1.2 cm LV patterson. diameter/BSA (cm/m^2): 2.1 LV sys. diameter/BSA (cm/m^2): 1.5 LA A2 area: 19.0 cm2 RA long axis: 4.2 cm LA A4 area: 18.1 cm2 RA area: 11.8 cm2 LA length (vol): 5.4 cm RA vol: 28.3 ml LA vol: 54.3 ml RA : 14.1 ml/m2 LA vol index: 27.1 ml/m2 IVC diam: 1.9 cm RVD1 (basal): 3.5 cm RVD2 (mid): 2.8 cm TAPSE: 2.2 cm Doppler Measurements & Calculations Ao V2 max: 142.6 cm/sec LVOT Max Timoteo: 107.7 cm/sec Ao V2 mean: 93.2 cm/sec LV V1 max P.6 mmHg Ao max P.1 mmHg LV V1 VTI: 29.3 cm Ao mean P.0 mmHg JERROD(I,D): 2.5 cm2 Ao V2 VTI: 36.5 cm JERROD(V,D): 2.4 cm2 sev ratio: 0.80 JERROD indexed to BSA (cm^2/m^2): 1.2 MV E max timoteo: 102.4 cm/sec TR max timoteo: 281.9 cm/sec MV A max timoteo: 85.6 cm/sec TR max P.8 mmHg MV E/A: 1.2 PA V2 max: 83.7 cm/sec Med Peak E' Timoteo: 7.2 cm/sec PA V2 mean: 65.1 cm/sec E/E' med: 14.2 PA mean P.8 mmHg Lat Peak E' Timoteo: 9.4 cm/sec PA pr(Accel): 43.0 mmHg E/E' lat: 10.9 E/e' average: 12.6 MV dec time: 0.23 sec SV(LVOT): 91.1 ml Reading Physician:04:43 PM
== END ==
PROVIDERS: PCP Family Medicine; Referring Provider Internal Medicine Cardiovascular Disease; Visit Provider Internal Medicine Cardiovascular Disease
DX: I08.1 Rheumatic disorders of both mitral and tricuspid valves (principal); R55 Syncope and collapse
CPT/HCPCS: 93306

== ENCOUNTER → 2024-12-08 11:43 | Outpatient (CLI) | payer MEDICARE, OTHER, SELFPAY ==
--- NOTE | 2024-12-08 11:44 | DI.MG.S_ITS ---
MM diagnostic mammo BI, US breast RT limited: 12/08/2024 BI-RADS: 5 CLINICAL: 84-year old female for bilateral diagnostic mammogram and right diagnostic breast ultrasound. Tyrer-Cuzick lifetime risk of 0.8%. No personal or first- degree family history of breast cancer. Current reported family history of breast cancer: paternal aunt. The patient reports a palpable abnormality (1 month) in the right breast. The patient had a prior right breast biopsy. PRIOR EXAMS No prior examinations available. MAMMOGRAPHY TECHNIQUE: 2D and 3D (tomosynthesis) digital mammographic views obtained, with additional images as needed for full coverage. Current study was also evaluated with a Computer Aided Detection (CAD) system. ULTRASOUND TECHNIQUE Real-time manzano scale and color doppler imaging of the area of clinical interest was performed with image documentation. Right targeted breast ultrasound of the area of clinical interest and the axilla was performed with image documentation. DENSITY B. There are scattered areas of fibroglandular density. MAMMOGRAPHY FINDINGS Right: Inner Central, Middle depth: Correlating with patient concern there is a spiculated, irregular, high-density mass present with associated calcifications. Right: Many other small oval circumscribed masses are also seen in the right breast. Bilateral: No suspicious mass, asymmetry, microcalcification, or other abnormality seen. ULTRASOUND FINDINGS Right: Upper Inner at 2:00, 8.0 cm from nipple, measuring 1.9 x 1.7 x 1.2 cm: Correlating with patient concern there is an irregularly shaped, spiculated mass. Right: No abnormal lymph nodes are seen in the axilla. IMPRESSION: Right (Mass): Upper Inner at 2:00, 8.0 cm from nipple, measuring 1.9 x 1.7 x 1.2 cm * Highly Suggestive of Malignancy. Left * No evidence of malignancy. RECOMMENDATIONS Right: Upper Inner at 2:00, 8.0 cm from nipple * Ultrasound-guided biopsy for further evaluation. COMMENTS: Other small oval circumscribed masses are seen in the right breast which may represent cysts. Further evaluation currently deferred given dominant highly suspicious finding above. Assuming pathologic result is compatible with malignancy, consider breast MRI to further evaluate extent of disease and possible other right breast findings. OVERALL ASSESSMENT CATEGORY BI-RADS-5: Highly Suggestive of Malignancy. ELECTRONICALLY SIGNED: Puneet Zaragoza M.D. on 12/08/2024 at 01:00:34 PM PT Interpreting Station ID: [id number]
== END ==
LOC: MAMMO 11:44
PROVIDERS: PCP Family Medicine; Referring Provider Family Medicine; Visit Provider Family Medicine
DX: R92.8 Other abnormal and inconclusive findings on diagnostic imaging of breast (principal); N63.12 Unspecified lump in the right breast, upper inner quadrant; Z80.3 Family history of malignant neoplasm of breast
CPT/HCPCS: 76642; 77066; G0279

== ENCOUNTER → 2024-12-16 15:51 | Outpatient (CLI) | payer MEDICARE, OTHER, SELFPAY ==
[2024-12-16 17:46] LABS: Appearance Urine UA CLEAR; Bilirubin Urine UA NEGATIVE (NEGATIVE); Color Urine UA YELLOW; Glucose Urine UA NEGATIVE (Negative); Ketones Urine UA NEGATIVE (NEGATIVE); Leukocyte Esterase Urine UA 1+ (NEGATIVE); Nitrite Urine UA NEGATIVE (Negative); Occult Blood Urine UA 1+ (Negative); Protein Urine UA NEGATIVE (Negative); Specific Gravity Urine UA <=1.005 (1.000-1.035); Urobilinogen Urine UA 0.2 E.U./dL (0.2)
[2024-12-16 17:47] LABS: pH Urine UA 6.0 (4.5-8.0)
[2024-12-16 18:00] LABS: Culture Indicated Urine Specimen Cultured
== END ==
PROVIDERS: PCP Family Medicine; Visit Provider Urology
DX: N39.0 Urinary tract infection, site not specified (principal); R39.9 Unspecified symptoms and signs involving the genitourinary system
CPT/HCPCS: 81001; 87086

== ENCOUNTER → 2024-12-30 16:50 | Outpatient (CLI) | payer MEDICARE, OTHER, SELFPAY | PROVIDERS: PCP Family Medicine; Visit Provider Urology | DX: N39.0 Urinary tract infection, site not specified (principal) | CPT/HCPCS: 87086 ==

== ENCOUNTER 2024-12-31 12:02 | Emergency (ER) | payer MEDICARE, OTHER, SELFPAY ==
[2024-12-31] VITALS (12 sets, daily range): BP systolic 125–176; BP diastolic 58–97; PULSE 58–74; RESP 12–20; TEMP 37.1; O2SAT 96–99; BMI 33.6
[2024-12-31 13:45] LABS: Culture Indicated Urine Specimen Cultured
--- NOTE | 2024-12-31 14:20 | ED.SOB ---
HPI - SOB/Dyspnea General Chief Complaint: Shortness of Breath/Dyspnea Stated Complaint: SOB worsening, has had UTI for weeks Time Seen by Provider: 12/31/24 12:07 Source: patient Mode of arrival: Ambulatory Limitations: no limitations History of Present Illness HPI Narrative: Patient brought here by daughter for complaints of shortness of breath for the past 1 week worsening last night. Feeling better today. Patient does have history of asthma CHF. She states it does not feel like CHF or asthma. Has not had weight gain or lymphedema. Patient sees primary doctor Shawn, urology dr tom, cardiology dr pratt. Patient is saw the urologist earlier this month and had cystoscopy for frequent UTIs and is being referred to Infectious diseases for evaluation. Patient states he is not improved in the past 2 or 3 weeks. She has been on multiple antibiotics. Most recently doxycycline from the urologist in the past 1 week. Patient denies any chest pain. Related Data Home Medications ?Medication ?Instructions ?Recorded ?Confirmed albuterol sulfate 90 mcg/actuation 1 puff INH PRN ##0 11/08/12 05/07/24 aerosol inhaler (Ventolin HFA) CA PANTOTHENATE/FOLIC ACID/VIT 1 tab PO QDAY ##0 01/19/13 05/07/24 (MULTIVITAMIN) apixaban 5 mg tablet (Eliquis) 5 mg PO BID 04/22/24 05/07/24 metoprolol succinate 50 mg 50 mg PO DAILY 04/22/24 05/07/24 tablet,extended release 24 hr montelukast 10 mg tablet 10 mg PO DAILY 04/22/24 05/07/24 phenazopyridine 95 mg tablet (Azo 95 mg PO TID PRN 04/22/24 05/07/24 Urinary Pain Relief) estradiol 0.01% (0.1 mg/gram) 0.5 g vaginal 2XW 08/01/24 08/01/24 vaginal cream furosemide 20 mg tablet mg PO 08/01/24 08/01/24 isosorbide mononitrate 30 mg mg PO DAILY 08/01/24 08/01/24 tablet,extended release 24 hr amlodipine 5 mg-olmesartan 20 mg 1 tab PO DAILY 12/16/24 12/16/24 tablet (Ousmane) bupropion HCl 200 mg tablet,12 hr 300 mg PO 12/16/24 12/16/24 sustained-release Previous Rx's ?Medication ?Instructions ?Recorded Myrbetriq 50 mg tablet,extended 50 mg PO DAILY #30 tabs 12/16/24 release (mirabegron) oxybutynin chloride 10 mg 10 mg PO DAILY #90 tabs 12/16/24 tablet,extended release 24 hr doxycycline hyclate 100 mg tablet 100 mg PO BID #10 tabs 12/23/24 Allergies Allergy/AdvReac Type Severity Reaction Status Date / Time SULFA TOPICAL CREAM Allergy Unknown Uncoded 12/31/24 12:26 Review of Systems Review of Systems Narrative: GENERAL: Negative chills, fatigue, malaise, fever, sweats. HEENT: Negative sinus pain, ear pain, sore throat RESPIRATORY: Positive dyspnea, negative cough CARDIOVASCULAR: Negative chest pain, palpitations GASTROINTESTINAL: Negative vomiting, nausea, abdominal pain : Positive dysuria, frequency, negative hematuria MUSCULOSKELETAL: Negative muscle or bony pain SKIN: Negative rash, skin lesions NEUROLOGIC: Negative weakness, numbness ROS Unobtainable: All systems reviewed & are unremarkable except as noted in HPI and below Patient History Social History Smoking Status: Never smoker Smoking Status: Never smoker Exam Narrative Exam Narrative: GENERAL: in no distress, not toxic not dyspneic HEAD: Normocephalic. EYES: Pupils equal round ENT: Mucous membranes moist. NECK: Trachea midline. CARDIOVASCULAR: Regular rate and rhythm RESPIRATORY: Clear to auscultation. Breath sounds equal bilaterally. No wheezes, rales, or rhonchi. Patient walk from bathroom to the room by herself. Not dyspneic while walking. GASTROINTESTINAL: Abdomen soft, non-tender EXTREMITIES: No gross deformities. BACK: No flank tenderness. NEURO: AOx4. Clear speech SKIN: Warm and dry PSYCH: Not anxious, is cooperative Initial Vital Signs Initial Vital Signs: Vital Signs Temperature 98.7 F 12/31/24 12:19 Pulse Rate 74 12/31/24 12:19 Respiratory Rate 18 12/31/24 12:19 Blood Pressure 134/61 12/31/24 12:19 Pulse Oximetry 97 12/31/24 12:19 Oxygen Delivery Method Room Air 12/31/24 12:19 Course Orders Ordered: ED Orders 12/31/24 12:35 Complete Blood Count AUTO DIFF Stat Comprehensive Metabolic Panel Stat Lactate (Lactic Acid) Stat NT-proBNP (BNP-Adult 18+) Stat PTT Partial Thromboplastin Tommy Stat Procalcitonin Stat Prothrombin Time INR Stat Troponin & CK Cardiac Panel Stat 12/31/24 12:44 Urine Culture Stat Urine Microscopic Stat 12/31/24 14:19 CT chest abd pel wo con Stat Vital Signs Vital signs: Vital Signs - 8 hr 12/31/24 12:19 12/31/24 12:55 12/31/24 12:55 Temperature 98.7 F Pulse Rate 74 62 Respiratory Rate 18 Blood Pressure 134/61 125/58 L Pulse Oximetry 97 97 Oxygen Delivery Method Room Air 12/31/24 13:00 12/31/24 13:01 12/31/24 13:01 Temperature Pulse Rate 65 61 Respiratory Rate 17 18 Blood Pressure 144/67 H Pulse Oximetry 96 97 Oxygen Delivery Method 12/31/24 13:30 12/31/24 13:30 12/31/24 13:57 Temperature Pulse Rate 66 69 Respiratory Rate 20 13 Blood Pressure 145/67 H Pulse Oximetry 99 99 Oxygen Delivery Method 12/31/24 13:57 12/31/24 14:00 12/31/24 14:01 Temperature Pulse Rate 68 Respiratory Rate 12 Blood Pressure 131/97 H 154/70 H Pulse Oximetry 99 Oxygen Delivery Method 12/31/24 14:01 12/31/24 14:32 12/31/24 14:33 Temperature Pulse Rate 71 59 L Respiratory Rate 12 19 Blood Pressure 142/63 H Pulse Oximetry 99 99 Oxygen Delivery Method 12/31/24 14:33 Temperature Pulse Rate 58 L Respiratory Rate 13 Blood Pressure Pulse Oximetry 99 Oxygen Delivery Method MDM - SOB/Dyspnea Lab Data 12/31/24 12:35 12/31/24 12:35 Labs: Lab Results 12/31/24 12/31/24 Range/Units 12:35 12:44 WBC 7.8 (4.5-11.0) X10^3/uL RBC 4.21 (4.0-5.2) X10^6/uL Hgb 13.5 (12.0-16.0) g/dL Hct 40.0 (36-46) % MCV 95.2 (80-100) fL MCH 32.2 (26-34) PG MCHC 33.8 (30-36) % RDW 13.7 (11.6-14.8) % Plt Count 204 (150-400) X10^3/uL Neut % (Auto) 40.9 L (50-75) % Lymph % (Auto) 45.3 H (25-40) % [place] % (Auto) 8.9 (3-14) % Eos % (Auto) 3.7 (2-4) % Baso % (Auto) 1.2 (0-2) % Neut # (Auto) 3200 (3710-2903) /uL Lymph # (Auto) 3500 (1815-1911) /uL [place] # (Auto) 700 (0-900) /uL Eos # (Auto) 300 (0-450) /uL Baso # (Auto) 100 (0-100) /uL PT 15.3 H (9.4-12.5) SECONDS INR 1.4 H (0.9-1.3) APTT 40 H (25.1-36.5) SECONDS Sodium 129 L (137-145) mmol/L Potassium 4.4 (3.4-5.1) mmol/L Chloride 96 L (98-107) mmol/L Carbon Dioxide 24 (22-32) mmol/L BUN 37 H (7-17) mg/dL Creatinine 1.38 H (0.52-1.04) mg/dL Estimated GFR 38 L (>60) mL/min BUN/Creatinine Ratio 26.8 H (6-22) Glucose 116 H (70-99) mg/dL Lactate 1.4 (0.7-2.1) mmol/L Calcium 9.3 (8.4-10.2) mg/dL Total Bilirubin 0.6 (0.2-1.3) mg/dL AST 29 (14-36) IU/L ALT 21 (<35) IU/L Alkaline Phosphatase 91 (38-126) U/L Total Creatine Kinase 56 (30-135) U/L Troponin I < 0.012 (0.01-0.034) ng/mL NT-Pro-B Natriuret Pep 213 (<450) pg/mL Total Protein 7.0 (6.3-8.2) g/dL Albumin 4.3 (3.5-5.0) g/dL Globulin 2.7 (1.7-4.1) g/dL Albumin/Globulin Ratio 1.6 (1.0-2.8) Procalcitonin 0.052 (<0.5) ng/mL Urine RBC 5-10/hpf H (0-5/HPF) Urine WBC 5-10/hpf H (0-5/HPF) Ur Squamous Epith Cells 1-5 /hpf (0-5/HPF) Urine Bacteria None seen (None) Ur Culture Indicated? Specimen cultured Vol Urine Centrifuged 10ml (spun) Urine Dip Bedside Urine Glucose Negative Bedside Urine Bilirubin - Negative Bedside Urine Ketone - Negative Urine Specific [place] 1.010 Bedside Urine Occult Blood ++ Bedside Urine pH 6.0 Bedside Urine Protein - Negative Bedside Urine Urobilinogen - Negative Bedside Urine Nitrite - Negative Bedside Urine Leukocytes + [address] chest abdomen and pelvis: Radiologist's Impression: [address] [address] [address] Scan Report Signed Patient: Fay Carbajal MR#: [id number] : 1940 Acct:[id number] Age/Sex: 84 / F Date of Service: 12/31/24 Loc: ED Accession Number: [id number] Procedure: CT chest abd pel wo con Ordering Provider: Korey Rivera MD PROCEDURE: CT CHEST ABD PEL WO CON INDICATIONS: Sepsis TECHNIQUE: After the administration of oral contrast, 5 mm thick sections acquired from the lung apices to the symphysis pubis. 5 mm thick coronal and sagittal reformats acquired, with additional 7 mm coronal MIP reformats through the lungs. For radiation dose reduction, the following was used: automated exposure control, adjustment of mA and/or kV according to patient size. COMPARISON: None. FINDINGS: Image quality: Diagnostic. CHEST: Lower Neck: No enlarged lymph nodes. Thyroid: Right thyroid nodule measuring 2.3 cm. Axillae: No enlarged lymph nodes. Chest Wall: Nodules in the medial right breast measuring up to 1.3 cm (2/53).. Bones: Unremarkable. Lungs and Pleura: No pneumothorax or pleural effusions. No consolidation or suspicious nodules. Heart: Heart size is normal. Coronary artery calcifications. No pericardial effusion. Thoracic Vessels: The aorta and pulmonary arteries demonstrate normal size. Atherosclerotic vascular calcifications. Mediastinum and Yue: No enlarged lymph nodes. Esophagus: No wall thickening. No hiatal hernia. ABDOMEN: Liver: No solid mass. Gallbladder: Surgically absent. Biliary ducts: No biliary dilation. Pancreas: No ductal dilation. Spleen: Size is within normal limits. Adrenal Glands: No adrenal nodules. Kidneys and Ureters: Mild fullness of the renal collecting systems without hydroureter. No solid mass. No complex renal cystic lesion which requires follow up. Stomach and Bowel: Normal colonic caliber, without significant wall thickening. Diverticulosis without evidence of acute diverticulitis. Moderate to large stool burden. Peritoneum: No abnormal intraperitoneal fluid. No free air. Ventral Wall: No hernia. Abdominal Nodes: No retroperitoneal or mesenteric adenopathy by size criteria. Vessels: Aorta and inferior vena cava are normal in size. Atherosclerotic vascular calcifications. PELVIS: Pelvic Organs: Unremarkable. Bladder: Lobulated appearance of the urinary bladder with thickening and mild surrounding inflammation. Pelvic Nodes: No enlarged lymph nodes. Miscellaneous: No inguinal hernias are seen. Bones: No aggressive osseous abnormality. Multilevel degenerative changes of the spine. Decreased osseous mineralization. IMPRESSION: Lobulated appearance of the urinary bladder with wall thickening and mild surrounding inflammation, correlate for cystitis. Right thyroid nodule measuring 2.3 cm, recommend nonurgent thyroid ultrasound. Nodules in the medial right breast measuring up to 1.3 cm, recommend correlation with dedicated breast imaging. Diverticulosis without evidence of acute diverticulitis. Moderate to large stool burden, correlate for constipation. Fullness of the renal collecting systems versus extrarenal pelvis. No hydroureter. Dictated by: Maxwell Waite M.D. on 12/31/2024 at 15:38 Approved by: Maxwell Waite M.D. on 12/31/2024 at 16:24 [facility] Narrative Medical decision making narrative: Patient brought here by daughter for complaints of shortness of breath for the past 1 week worsening last night. Feeling better today. Patient does have history of asthma CHF. She states it does not feel like CHF or asthma. Has not had weight gain or lymphedema. Patient sees primary doctor Shawn, urology dr tom, cardiology dr pratt. Patient is saw the urologist earlier this month and had cystoscopy for frequent UTIs and is being referred to Infectious diseases for evaluation. Patient states he is not improved in the past 2 or 3 weeks. She has been on multiple antibiotics. Most recently doxycycline from the urologist in the past 1 week. Patient denies any chest pain. After history and exam, [facility] Medical records reviewed: Differential considered: Includes but not limited to Lab Test results independently reviewed as above. Pertinent findings: Urinalysis positive leukocytes, WBC 7.8 hemoglobin 13.5 INR 1.4 sodium 129 potassium 4.4 BUN 37 creatinine 1.38 troponin less than 0.012 procalcitonin 0.052 BNP 213 lactic acid 1.4 Independently reviewed EKG normal sinus rhythm right bundle branch block rate [address] elevation or depression Imaging studies independently reviewed: CT chest abdomen pelvis, no acute finding other than cystitis Consultations: 5:35 p.m. I spoke with patient's primary care dr zavaleta, he would like to see patient in the office tomorrow, no indication for admission today. Re-evaluations: 5:29 p.m.. Updated patient and daughter results. She has not been short of breath during course of stay. She has been up and walking back and forth to the bathroom without any dyspnea. Without assist. CT does show cystitis. They will follow up with Dr. Tom, patient's urologist. They will follow up with primary care next week regarding her shortness of breath. Today's laboratory studies imaging studies are reassuring. No signs of sepsis. No signs of CHF or pneumonia. Patient never had any chest pain. Return precautions reviewed they desire discharge home. 5:38 p.m.. Updated patient that primary care was contacted and need to see them tomorrow for follow up. Discussion: Appropriate for discharge home. Patient is in no distress. No dyspnea during course of stay. Return precautions reviewed. They desire discharge home. Diagnosis: Dyspnea/cystitis Discharge Plan Departure Patient Disposition: Home Clinical Impression: Shortness of Breath, Cystitis Instructions: DI for Shortness of Breath, DI for Acute Cystitis Activity Restrictions/Additional Instructions: Your exam and laboratory studies imaging studies are reassuring. No antibiotics are indicated this time. Please do follow-up with your urologist next week. CT scan does show cystitis/inflammation of the bladder. Laboratory studies regarding sepsis is reassuring. No abnormal labs for sepsis seen today. No signs of congestive heart failure. Heart enzymes are reassuring. Return if worse if any questions or concerns. Your family doctor would like to see you tomorrow in the office. He was contacted today. Prescriptions: No Action isosorbide mononitrate 30 mg tablet extended release 24 hr PO DAILY furosemide 20 mg tablet PO Patient Comments: [NO ORIGINAL SIG] estradiol 0.01 % (0.1 mg/gram) cream 0.5 g vaginal 2XW bupropion HCl 200 mg tablet sustained-release 12 hr 300 mg PO albuterol sulfate [Ventolin HFA] 90 MCG/PUFF HFA aerosol inhaler 1 puff INH PRN Qty: 0 CA PANTOTHENATE/FOLIC ACID/VIT (MULTIVITAMIN) 1 tab PO QDAY Qty: 0 doxycycline hyclate 100 mg tablet 100 mg PO BID Qty: 10 0RF phenazopyridine [Azo Urinary Pain Relief] 95 mg tablet 95 mg PO TID PRN metoprolol succinate 50 mg tablet extended release 24 hr 50 mg PO DAILY montelukast 10 mg tablet 10 mg PO DAILY Eliquis 5 mg tablet 5 mg PO BID amlodipine-olmesartan [Ousmane] 5-20 mg tablet 1 tab PO DAILY oxybutynin chloride 10 mg tablet extended release 24hr 10 mg PO DAILY Qty: 90 0RF mirabegron [Myrbetriq] 50 mg tablet extended release 24 hr 50 mg PO DAILY Qty: 30 2RF Referrals: Júnior Zavaleta MD [Primary Care Provider, Family Practice] Stand Alone Forms: Patient Portal/API
[2024-12-31 14:41] LABS: Add Manual Diff / Slide Review NO; Hematocrit 40.0 % (36-46); Hemoglobin 13.5 g/dL (12.0-16.0); Lymphocytes Absolute Auto 3500 /uL (1100-4500); Mean Corpuscular HGB Conc 33.8 % (30-36); Mean Corpuscular Hemoglobin 32.2 PG (26-34); Mean Corpuscular Volume 95.2 fL (80-100); Platelet Count 204 X10^3/uL (150-400)
[2024-12-31 14:43] LABS: INR 1.4 (0.9-1.3); Prothrombin Time 15.3 SECONDS (9.4-12.5)
[2024-12-31 14:45] LABS: PTT Partial Thromboplastin Tim 40 SECONDS (25.1-36.5)
[2024-12-31 14:49] LABS: Alanine Aminotransferase 21 IU/L (<35); Albumin 4.3 g/dL (3.5-5.0); Albumin Globulin Ratio 1.6 (1.0-2.8); Alkaline Phosphatase 91 U/L (38-126); Blood Urea Nitrogen 37 mg/dL (7-17); Calcium 9.3 mg/dL (8.4-10.2); Carbon Dioxide 24 mmol/L (22-32); Chloride 96 mmol/L (98-107); Creatine Kinase 56 U/L (30-135); Estimated Glomerular Filt Rate 38 mL/min (>60); Globulin 2.7 g/dL (1.7-4.1); Glucose 116 mg/dL (70-99); HEMOLYSIS < 15 (0-50); Lactate (Lactic Acid) 1.4 mmol/L (0.7-2.1); Potassium 4.4 mmol/L (3.4-5.1); Sodium 129 mmol/L (137-145); Total Protein 7.0 g/dL (6.3-8.2)
[2024-12-31 15:00] LABS: NT-proBNP (BNP-Adult 18+) 213 pg/mL (<450); Troponin I < 0.012 ng/mL (0.01-0.034)
[2024-12-31 15:06] LABS: Procalcitonin 0.052 ng/mL (<0.5)
== END 2024-12-31 17:48 | disposition home or self-care (01) ==
PROVIDERS: Emergency Provider Emergency Medicine; PCP Family Medicine
DX: N30.00 Acute cystitis without hematuria (principal); R06.02 Shortness of breath; Z86.79 Personal history of other diseases of the circulatory system; Z87.09 Personal history of other diseases of the respiratory system
CPT/HCPCS: 71250; 74176; 80053; 81003; 81015; 82550; 83605; 83880; 84145; 84484; 85025; 85610; 85730; 87086; 99282; 99284